=== PATIENT | male | born 1985 | race African-American/Black ===

== ENCOUNTER 2016-10-22 22:11 | Emergency (ER) | payer SELFPAY ==
[~2016-10-22] VITALS: Ht 177.8 cm; Wt 102.3 kg
[~2016-10-22 22:11] MED LIST: BPR150TCR PO; ESZO3TAB12 PO; LAM25 PO; REM15 PO
[2016-10-22 22:16] VITALS: BP 148/88; PULSE 95; RESP 18; O2SAT 99
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
[2016-10-22] MEDS ORDERED: Trimethoprim-Sulfa 160 mg-800 mg Tablet PO ONE (23:45)
[2016-10-22] MEDS ORDERED: SULF1TAB35 PO (23:57)
[2016-10-22] MEDS ORDERED: NPR500T PO (23:57)
[2016-10-23 00:06] VITALS: PULSE 82; RESP 16
== END 2016-10-23 00:06 | disposition home or self-care (01) ==
LOC: SED 22:11
DX: N61.1 Abscess of the breast and nipple (principal); W34.011A Accidental discharge of paintball gun, initial encounter; Y93.9 Activity, unspecified; Y92.9 Unspecified place or not applicable; Y99.8 Other external cause status; F32.9 Major depressive disorder, single episode, unspecified
CPT/HCPCS: 10061; 96372; 99283; J1885